=== PATIENT | male | born 1995 | race Caucasian/White ===

== ENCOUNTER 2023-01-17 13:40 | Emergency (ER) | payer OTHER, SELFPAY ==
--- NOTE | ~2023-01-17 | XR_ITS ---
EXAMINATION: XR CHEST CLINICAL INFORMATION: Pain. COMPARISON: None available. TECHNIQUE: Frontal view of the chest was obtained. FINDINGS: Multiple external artifacts overlie the thorax. The heart pleura normal pattern of pulmonary vasculature. No focal pulmonary consolidation. XR/XR chest 1V IMPRESSION: Normal chest. Lungs clear.
--- NOTE | 2023-01-17 13:42 | ECG_ITS ---
Test Reason : CHEST PAIN Blood Pressure : / mmHG Vent. Rate : 060 BPM Atrial Rate : 060 BPM P-R Int : 124 ms QRS Dur : 096 ms QT Int : 442 ms P-R-T Axes : 034 001 -04 degrees QTc Int : 442 ms Normal sinus rhythm Nonspecific T wave abnormality Inferior leads Abnormal ECG No previous ECGs available Referred By: Generic ED Physician Electronically Signed By:ALEX KING MD
[2023-01-17 13:52] VITALS: BP 144/86; PULSE 90; RESP 26; TEMP 36.7; O2SAT 100; BMI 29.8
--- NOTE | 2023-01-17 13:57 | ED.CHESTPAIN ---
HPI - Chest Pain General Chief Complaint: Chest Pain Stated Complaint: CP/ nausea Time Seen by Provider: 01/17/23 14:20 Source: patient Mode of arrival: ambulatory Limitations: no limitations History of Present Illness HPI narrative: 27 yo male with no PMH who just started working out again - he is taking supplements such as oral anabolic steroids, creatinine and then took more pre-workout which including 590mg of caffeine. He worked out and felt good he states. He went home had a protein shake then around 01/1230 he started to feel anxious, heart racing, both hands sweaty and numb, fast breathing and chest tightness. He has no family hx of early CAD and no known cardiac issues. He has not traveled or had procedures. MD complaint: chest heaviness Onset (ago): hour(s) (12pm today ) Timing of current episode: constant Prior episodes: Yes Onset: during rest Pain location: substernal Pain radiation: none Severity: moderate Quality: tightness Relieving factors: nothing Exacerbating factors: other (pre-workout) Context: other (ingestion of 600mg caffeine) Associated symptoms: nausea, diaphoresis, dyspnea, sense of impending doom and palpitations Treatment prior to arrival: none Related Data Allergies Allergy/AdvReac Type Severity Reaction Status Date / Time No Known Allergies Allergy Verified 01/17/23 13:53 Review of Systems Review of Systems: Constitutional : No Weight loss, No Fever, No Chills, pos sweats ENT/Mouth : No sore throat, No Rhinorrhea Eyes: No Eye Pain, No Swelling Cardiovascular : pos Chest Pain, pos SOB, no Dyspnea on Exertion, No Orthopnea, No Edema, No Palpitations Respiratory : No Cough, No Sputum Gastrointestinal : pos Nausea, No Vomiting, No Diarrhea, No abdominal Pain, No Hematochezia, No Melena Genitourinary : No Dysuria, No Urinary Frequency Musculoskeletal : No joint pain, No Myalgias, No Joint Swelling Skin : No Skin Lesions, No rash Neuro : No Weakness, No Numbness, pos Dizziness, No Headache Psych : pos Anxiety/Panic, No Depression Heme/Lymph: No Bruising, No Lymphadenopathy Endocrine : No Polyuria, No Polydipsia All other systems reviewed and are negative [facility] Past Medical History Attestation statement: The following information was validated with the patient. Source: old records reviewed Medical History No pertinent past medical history Social History Social History Smoked in Last 30 Days: No Use of substances other than those prescribed or required for medical reasons: Yes Substance Use Type: Marijuana Substance Use Frequency: Occasionally Advance Directives: No Advance Directives Information Provided: No Physical Exam Vital Signs: Vital Signs: Last Vital Signs Temp 97.8 F 01/17/23 15:42 Pulse 52 01/17/23 15:42 Resp 21 H 01/17/23 15:42 BP 131/84 01/17/23 15:42 Pulse Ox 99 01/17/23 15:42 O2 Del Method Room Air 01/17/23 15:42 BMI result Body Mass Index 29.8 Appearance: Alert. Oriented X3. No acute distress. Very anxious Eyes: Pupils equal, round and reactive to light. ENT: Pharynx normal. Neck: Normal inspection. Neck supple. CVS: Normal heart rate and rhythm. Pulses normal. Respiratory: No respiratory distress. Breath sounds normal. Abdomen: Soft and non-tender. bounding femoral pulses Skin: Skin warm and dry. Normal skin color. Normal skin turgor. Extremities: No lower extremity edema. No calf ttp Neuro: Oriented X 3. No motor deficit. No sensory deficit. Course Course Course Narrative: This is an RME: Additional HPI, ROS, PE not included below will be deferred to primary provider. This is a [id number]-male presenting to the emergency department with complaints of chest pain and shortness of breath x 1 hour. Patient states that he recently purchased new nutrition products, and use all these new supplements today. Upon reviewing the supplements this contained greater than 600 mg of caffeine. He denies using anabolic steroids. He reports that his hands are numb. EKG was performed STAT. Discussed this with attending physician, Dr. Hagen, recommends Ativan dosing. Patient brought back to ER for re-evaluation. Plan: Labs, EKG Reevaluation(s) Reevaluation #2: Patient is clinically sober, has no significant distracting injury, and they appear to have intact judgement, insight and reason. In my clinical opinion they have medical decision making capacity. Signs and symptoms discussed with patient. They express understanding of signs/symptoms as explained to them and they repeated it back to me. Risks and benefits discussed with patient to include but not limited to , keno terminal operator disability or loss of significant bodily functions. Alternatives to treatment plan discussed and offered. Patient encouraged to return should they change their mind. Close followup strongly encouraged in case they choose not to return. The patient wants leave Against Medical Advise at this time Medications Administered Discontinued Medications Generic Name Dose Route Start Last Admin Trade Name Oralia PRN Reason Stop Dose Admin Sodium Chloride 1,000 mls @ 999 mls/hr 01/17/23 14:30 01/17/23 14:36 Ns IV 01/17/23 15:30 999 mls/hr .Q1H1M ESME Administration Lorazepam 2 mg 01/17/23 13:53 01/17/23 14:21 Lorazepam 1 Mg Tablet PO 01/17/23 13:54 2 mg ONCE ONE Administration Medical Decision Making Medical Decision Making [facility] Narrative: 27 yo male with no PMH here with c/o anxiety, atypical chest pain in setting of elevated caffeine. He denies IVDA, he is PERC negative bounding pulses doubt dissection. At this time will give ativan and repeat troponin, repeat EKG no dynamic changes. Differential Diagnosis Differential Diagnoses: The differential diagnosis associated with the presentation includes atypical chest pain, med reactions, PERC negative doubt PE, distal pulses intact doubt dissection, anxiety Admission/Observation Consideration of admission/observation: Escalation of care including admission/observation considered signed out AMA prior to full work up Lab Data [facility] Lab Attestation statement: I reviewed the patient's lab results. 01/17/23 14:33 01/17/23 14:33 Labs: Lab Results 01/17/23 01/17/23 Range/Units 14:33 15:42 WBC 8.5 (4.8-10.8) X10*3/uL RBC 5.38 (4.60-5.80) X10*6/uL Hgb 15.6 (14.0-18.0) g/dl Hct 45.7 (42.0-52.0) % MCV 84.9 (80.0-98.0) fL MCH 29.0 (27.0-33.0) pg MCHC 34.1 (31.0-36.0) g/dl RDW 12.4 (11.0-16.0) % Plt Count 167 (160-400) X10*3/uL MPV 10.1 (9.4-12.4) fL Immature Gran % (Auto) 0.4 (0.0-0.4) % Neut % (Auto) 85.1 H (45-73) % Lymph % (Auto) 9.0 L (20-40) % [place] % (Auto) 5.1 (2-11) % Eos % (Auto) 0.0 (0-4) % Baso % (Auto) 0.4 (0-2) % Lymph # (Auto) 0.8 L (1.2-4.9) X10*3/uL [place] # (Auto) 0.4 (0.1-1.2) X10*3/uL Eos # (Auto) 0.0 (0.0-0.4) X10*3/uL Baso # (Auto) 0.0 (0.0-0.2) X10*3/uL Abs Immat Gran (auto) 0.03 (0.00-0.03) X10*3/uL Absolute Neuts (auto) 7.2 (2.0-8.3) x10*3/uL Absolute Nucleated RBC 0.000 (0.0-0.012) X10*3/uL Nucleated RBC % (auto) 0.0 (0.0-0.2) /100WBC Sodium 139 (135-145) mmol/L Potassium 4.1 (3.3-5.1) mmol/L Chloride 105 (96-108) mmol/L Carbon Dioxide 24 (22-29) mmol/L Anion Gap 14 (12-20) BUN 17 H (9-16) mg/dL Creatinine 1.06 (0.5-1.4) mg/dL Estim Creat Clear Calc 111.7 Estimated GFR > 60 Random Glucose 122 H (60-115) mg/dL Calcium 9.6 (8.4-10.2) mg/dL Total Bilirubin 0.6 (0.0-1.0) mg/dL Direct Bilirubin 0.2 (0.0-0.5) mg/dL AST 20 (5-37) U/L ALT 23 (0-40) U/L Alkaline Phosphatase 68 (39-117) U/L Troponin I High Sens < 2.7 (<3.5-35.0) ng/L Total Protein 8.1 H (6.5-8.0) g/dL Albumin 4.9 (3.5-5.0) g/dL Urine Opiates Screen Not Detected (Not Detect) Urine Fentanyl Screen Not Detected (Not Detect) Ur Barbiturates Screen Not Detected (Not Detect) Ur Phencyclidine Scrn Not Detected (Not Detect) Ur Amphetamines Screen Not Detected (Not Detect) U Benzodiazepines Scrn Not Detected (Not Detect) Urine Cocaine Screen Not Detected (Not Detect) U Marijuana (THC) Screen Not Detected (Not Detect) Ethyl Alcohol < 10 mg/dL Independent Interpretation I performed an independent interpretation of an: EKG and Plain X-Ray (no PTX) Interpretation: Rate: 60 Rhythm: NSR [place]: left Normal P waves. Normal NATHANIEL. Normal QRS complex. ST T wave : no ROSMERY, inverted T wave III and aVF qTC: normal prior studies: no acute ischemia The study has been interpreted contemporaneously by me. EKG #2 Rate: 51 Rhythm: sinus bradycardia [place]: left Normal P waves. Normal NATHANIEL. Normal QRS complex. ST T wave : inverted t waves III and aVF, no ROSMERY qTC: normal prior studies: no acute ischemia The study has been interpreted contemporaneously by me. . Radiology Impression Discussion of test interpretation with radiology: I have reviewed the radiologist's reading. Discharge Plan Discharge Clinical Impression: Atypical chest pain Patient Disposition: Left Against Medical Advice Instructions: Chest Pain (ED), Against Medical Advice (ED) Additional Instructions: you can come back at any time. we did not complete a full workup. please never take those supplements again. if you have any concerns or return of symptoms please come back.
[2023-01-17] MEDS: LORazepam 1 MG TABLET 2 MG PO (14:21)
[2023-01-17 14:36] LABS: MANUAL DIFF FLAG NO
[2023-01-17] MEDS: 0.9 % Sodium Chloride 1,000 ML 999 ML IV (14:36)
--- NOTE | 2023-01-17 14:41 | PC.NURSE ---
pt a&o x4, calm, and cooperative. pt reporting chest pain after taking workout supplements. pt placed on bedside monitor. 20G IV placed to RAC. labs drawn and sent. fluids hung and pt medicated per apr. 2nd EKG obtained. rr even/unlabored. call mendenhall within pt reach. plan of care ongoing.
[2023-01-17 14:43] LABS: Basophils Percent Auto 0.4 % (0-2); Hematocrit 45.7 % (42.0-52.0); Hemoglobin 15.6 g/dl (14.0-18.0); Imm Gran Abs Auto 0.03 X10*3/uL (0.00-0.03); Imm Gran Pct Auto 0.4 % (0.0-0.4); Lymphocytes Absolute Auto 0.8 X10*3/uL (1.2-4.9); Mean Corpuscular HGB Conc 34.1 g/dl (31.0-36.0); Mean Corpuscular Volume 84.9 fL (80.0-98.0); Mean Platelet Volume 10.1 fL (9.4-12.4); Monocytes Absolute Auto 0.4 X10*3/uL (0.1-1.2); Monocytes Percent Auto 5.1 % (2-11); Neutrophils Absolute Auto 7.2 x10*3/uL (2.0-8.3); Neutrophils Percent Auto 85.1 % (45-73); Platelet Count 167 X10*3/uL (160-400); Red Blood Count 5.38 X10*6/uL (4.60-5.80); Red Cell Distribution Width 12.4 % (11.0-16.0); White Blood Count 8.5 X10*3/uL (4.8-10.8)
[2023-01-17 14:55] LABS: Alanine Aminotransferase 23 U/L (0-40); Albumin Level 4.9 g/dL (3.5-5.0); Alkaline Phosphatase 68 U/L (39-117); Anion Gap 14 (12-20); Aspartate Amino Transferase 20 U/L (5-37); Bilirubin Direct 0.2 mg/dL (0.0-0.5); Bilirubin Total 0.6 mg/dL (0.0-1.0); Blood Urea Nitrogen 17 mg/dL (9-16); Calcium 9.6 mg/dL (8.4-10.2); Carbon Dioxide 24 mmol/L (22-29); Chloride 105 mmol/L (96-108); Creatinine Clr Calc Pharmacy 111.7; Estimated Glomerular Filt Rate > 60; Ethanol < 10 mg/dL; Glucose Random 122 mg/dL (60-115); Potassium 4.1 mmol/L (3.3-5.1); Sodium 139 mmol/L (135-145); Total Protein 8.1 g/dL (6.5-8.0)
[2023-01-17 15:13] LABS: Troponin-I High Sensitivity < 2.7 ng/L (<3.5-35.0)
[2023-01-17 15:42] VITALS: BP 131/84; PULSE 52; RESP 21; TEMP 36.6; O2SAT 99
[2023-01-17 15:55] LABS: Amphetamine Screen Urine Not Detected (Not Detect); Barbiturates, Urine Not Detected (Not Detect); Benzodiazepines Screen Urine Not Detected (Not Detect); Cannabinoid Screen Urine Not Detected (Not Detect); Cocaine Screen Urine Not Detected (Not Detect); Fentanyl, urine Not Detected (Not Detect); Opiate Screen Urine Not Detected (Not Detect); Phencyclidine Screen Urine Not Detected (Not Detect)
--- NOTE | 2023-01-17 16:20 | PC.NURSE ---
pt requesting to leave AMA, sts he feels fantastic now. denies chest pain, denies sob, denies anxiety. pt received about 100cc of IV fluids and ativan per mar. fluids not infusing as quickly as they should due to pt bending arm. pt encouraged to stay to obtain 2nd troponin at 1700 before leaving. pt refusing. notified and aware.
[2023-01-17 16:45] VITALS: BP 128/80; PULSE 59; RESP 13; O2SAT 100
== END 2023-01-17 16:40 | disposition left against medical advice (07) ==
PROVIDERS: Physician Assistant Medical; Emergency Provider Emergency Medicine; PCP Family Medicine
DX: R07.89 Other chest pain (principal); F41.9 Anxiety disorder, unspecified; R00.1 Bradycardia, unspecified; R06.02 Shortness of breath; Z79.899 Other long term (current) drug therapy
CPT/HCPCS: 36415; 71045; 80048; 80076; 80307; 84484; 85025; 93005; 96360; 99284; 99285